=== PATIENT | female | born 1955 | race Caucasian/White ===

== ENCOUNTER → 2017-10-14 17:13 | Outpatient (CLI) | payer OTHER, SELFPAY ==
[2017-10-14 17:45] LABS: Hematocrit 42.2 % (37-47); Hemoglobin 14.2 g/dl (12.0-15.0); Mean Corp Hgb Conc 33.6 g/gl (32-36); Mean Corpuscular Hgb 29.7 pg (27.0-32.0); Mean Corpuscular Volume 88.3 fL (81-99); Mean Platelet Vol. 9.1 fl (6.2-12.0); Platelet Count 263 K/mm3 (150-450); RBC Distribution Width CV 13.4 % (11.6-14.6); RBC Distribution Width SD 43.2 fl (35.1-43.9); Red Blood Count 4.78 M/mm3 (4.2-5.4); Scan Indicated on CBC? Y/N NO; White Blood Count 7.7 K/mm3 (4.4-11.0)
[2017-10-14 18:04] LABS: ALB/GLOB Ratio 1.1 RATIO (0.9-2.4); AST(SGOT) 16 U/L (15-37); Alanine Aminotransfer ALT/SGPT 31 U/L (13-56); Albumin, Serum 4.1 g/dL (3.2-5.0); Alkaline Phosphatase 134 U/L (45-117); Anion Gap 5 (5-15); BUN 14 mg/dL (7-18); Calcium,Total 9.1 mg/dL (8.5-10.1); Chloride 103 mmol/L (98-107); Creatinine, Serum 0.52 mg/dL (0.55-1.02); EST Glomerular Filtration Rate 126 mL/min (>60); Est Glom Filt Rate - Afr Amer 153 mL/min (>60); Globulin 3.9 g/dL (2.2-4.2); Glucose 106 mg/dL (74-106); Sodium Level 137 mmol/L (136-145)
[2017-10-21 11:59] LABS: HPV Reflexed? NOT INDICATED
== END ==
PROVIDERS: Visit Provider Obstetrics & Gynecology
DX: N95.1 Menopausal and female climacteric states (principal); Z12.4 Encounter for screening for malignant neoplasm of cervix
CPT/HCPCS: 36415; 80053; 85027; 88175; G0145

== ENCOUNTER 2023-05-14 11:19 | Emergency (ER) | payer MEDICARE, SELFPAY ==
[2023-05-14 11:20] VITALS: BP 177/102; PULSE 77; RESP 16; TEMP 36.2; O2SAT 98; BMI 25.4
--- NOTE | 2023-05-14 11:44 | CT_ITS ---
INDICATION: trauma EXAMINATION: CT BRAIN - CT Head or Brain W/O Contrast Injection TECHNIQUE: Multiple axial images were obtained of the head without intravenous contrast. A radiation dose optimization technique was used for this scan. IV Contrast dosage and agent: None. RADIATION DOSAGE (If Supplied By Facility): CTDIvol = ( 44.99 ) mGy, DLP = ( 779.24 ) mGycm COMPARISON: No relevant prior comparison study available FINDINGS: BRAIN PARENCHYMA: No intra- or extra-axial hemorrhage. There are patchy foci of low attenuation within the white matter of the cerebral hemispheres, a nonspecific finding most commonly reflecting small vessel ischemia. No evidence of acute infarct. No intracranial mass or mass effect. There is preservation of the marie/white matter interface. Posterior fossa structures are unremarkable. CSF SPACES: Appropriate for age. No hydrocephalus. Basal cisterns are patent. CALVARIUM, SKULL BASE, PARANASAL SINUSES AND MASTOID AIR CELLS: Clear. No discrete lytic or blastic abnormalities. There is a right periorbital hematoma associated with a subcutaneous hematoma overlying the right frontal calvarium. There is partial opacification of the ethmoid and visualized maxillary sinuses. ORBITS: Both globes, extraocular muscles, optic nerves and retrobulbar fat appear unremarkable. ASPECTS Score for Acute Strokes: 10 CT/Brain/Head without Contrast IMPRESSION: No acute intracranial process. Right periorbital hematoma associated with a subcutaneous hematoma overlying the right frontal calvarium. Small vessel ischemia. Electronically Signed: Thu Hooks MD at 12:40 EDT ,
--- NOTE | 2023-05-14 11:44 | CT_ITS ---
INDICATION: trauma EXAMINATION: CT CERVICAL SPINE - CT Spine Cervical W/O Contrast Injection TECHNIQUE: Helically acquired images were obtained of the cervical spine. 2D reformatted images were reviewed. A radiation dose optimization technique was used for this scan. IV Contrast dosage and agent: None. RADIATION DOSAGE (If Supplied By Facility): CTDIvol = ( 19.24 ) mGy, DLP = ( 390.43 ) mGycm COMPARISON: No relevant prior comparison study available FINDINGS: VERTEBRAE: No fracture or traumatic subluxation. There is multilevel endplate spondylosis and facet hypertrophy. No discrete lytic or blastic abnormality. Normal alignment. Normal craniocervical junction and cervicothoracic junction. DISCS and SPINAL CANAL: There is multilevel degenerative disc disease. No critical stenosis. NECK SOFT TISSUES: No prevertebral soft tissue swelling. There is no cervical adenopathy. There are vascular calcifications. There is a left carotid stent in place. LUNG APICES: Clear. CT/Spine Cervical without Contras IMPRESSION: Multilevel degenerative changes. Atherosclerosis. Electronically Signed: Thu Hooks MD at 12:44 EDT ,
--- NOTE | 2023-05-14 11:44 | CT_ITS ---
INDICATION: trauma EXAMINATION: CT FACIAL BONES - CT Maxillofacial W/O Contrast Injection TECHNIQUE: Helically acquired images were obtained of the facial bones. A radiation dose optimization technique was used for this scan. IV Contrast dosage and agent: None. RADIATION DOSAGE (If Supplied By Facility): CTDIvol = ( 29.38 ) mGy, DLP = ( 510.73 ) mGycm COMPARISON: No relevant prior comparison study available FINDINGS: SOFT TISSUES: There is a right periorbital hematoma associated with a subcutaneous hematoma overlying the right frontal calvarium. There is a left carotid stent in place. VISUALIZED PARANASAL SINUSES: There is partial opacification of the ethmoid and maxillary sinuses. VISUALIZED MASTOID AIR CELLS: Clear. FACIAL BONES, MANDIBLE AND TMJs: No displaced facial bone fracture. No lytic or blastic abnormality. VISUALIZED DENTITION: No periodontal osseous erosion. ORBITAL CONTENTS: Both globes, extraocular muscles and retrobulbar fat appear unremarkable. CT/Sinus/Facial Bone IMPRESSION: No acute osseous injury. Partial opacification of the ethmoid and maxillary sinuses consistent with a history of sinusitis. Right periorbital hematoma associated with a subcutaneous hematoma overlying the right frontal calvarium. Electronically Signed: Thu Hooks MD at 12:48 EDT ,
--- NOTE | 2023-05-14 11:51 | EDS_ITS ---
HPI HPI - Fall History of Present Illness Chief Complaint: Fall Informant: patient and spouse/S.O. Narrative Narrative: Presents here his private vehicle with significant other mechanical fall parking lot at [employer] getting out of the car. Head injury. No loss of conscious. Mild headache. No nausea or vomiting. Patient takes aspirin and Plavix for history of vascular insufficiency with carotid endarterectomy in the past. Tetanus more than 5 years ago. She scraped her knees. She is able to ambulate. No upper extremity pain. No neck or back pain. No chest pain. [facility] Medical History (Updated 05/14/23 @ 16:[address] Ernie Perez, DO) Acid reflux Coronary artery disease Diabetes Hypertension Plantar fasciitis Home Medications ibuprofen 600 mg tablet 600 mg PO Q8H PRN PRN Pain ##20 12/20/15 [Rx Last Taken Unknown] venlafaxine 150 mg capsule,extended release 24 hr 150 mg PO DAILY 12/20/15 [History Last Taken Unknown] Allergy/AdvReac Type Severity Reaction Status Date / Time Penicillins [PCN] Allergy Unknown Verified 05/14/23 11:23 Social History Smoking Status: Never smoker ROS ROS ED Constitutional Constitutional ED: Denies chills, fever(s) or sweats Eyes Eyes: Denies change in vision ENT ENT ED: Denies dysphagia or sore throat Cardiovascular Cardiovascular: Denies chest pain, leg edema, palpitations or racing heartbeat Respiratory/Chest Respiratory/Chest: Denies cough, dyspnea or dyspnea on exertion Gastrointestinal Gastrointestinal: Denies abdominal pain, diarrhea, nausea or vomiting Genitourinary Genitourinary ED: Denies dysuria, hematuria or urinary frequency Musculoskeletal Musculoskeletal: Denies back pain, extremity pain or neck pain Integumentary Reports wounds; Denies rash Neurologic Neurologic: Reports headache(s); Denies paresthesias or weakness EXAM Physical Exam Const Vital Signs: 05/14/23 11:20 05/14/23 11:53 05/14/23 13:24 Temperature 97.1 F L Temperature Source Temporal Pulse Rate 77 73 Respiratory Rate 16 Respiratory Effort Normal Respiratory Depth Normal Respiratory Pattern Normal Blood Pressure 177/102 H 160/92 H Blood Pressure Mean 127 114 Pulse Ox 98 100 Oxygen Delivery Method Room Air Room Air Positive well nourished and well developed Constitutional Narrative: GCS 15. General Appearance ED: well developed and NAD HEENT Reports moist mucous membranes HEENT Narrative: Large cephalic frontal hematoma right side, 2 small abrasions no active bleeding. Swelling about the eye. No hemotympanums. normocephalic Eyes PERRL, EOMs intact bilaterally and conjunctivae normal Eyes Narrative: No proptosis or entrapment General Eye ED: Yes normal appearance of both eyes Neck full ROM, no lymphadenopathy and supple Neck Narrative: No midline tenderness, no step-offs. General: Negative for tenderness Chest Wall inspection of chest normal and palpation of chest normal Chest: Negative for tenderness Resp normal respiratory effort and normal air movement Resp Narrative: Symmetric breath sounds Effort and Inspection: symmetric chest movement; Negative for respiratory distress Cardio regular rate, regular rhythm and no murmurs Peripheral Pulses: pulses 2+ throughout GI normal to inspection, nondistended, normoactive bowel sounds and non-tender Palpation: Negative for guarding or rebound tenderness present Back/Spine no CVA tenderness and no thoracic nor lumbar tenderness Back/Spine Narrative: No midline thoracic lumbar to tenderness. Extremity normal to inspection Extremity Narrative: Negative logroll lower extremities. Superficial knee abrasions right greater than left. No patellar tenderness. Negative varus and valgus. General Extremety ED: Negative for edema or tenderness General Extremity: Negative for edema Neuro oriented x3, CN's II-XII intact bilaterally and no sensory deficits noted Sensorium / Orientation: awake and alert Skin Skin Narrative: See above MDM MDM MDM Narrative Medical decision making narrative: Interventions / MDM: Differential diagnosis: Facial contusion, abrasions Diagnosis considered but do not suspect: Intracranial hemorrhage however CT negative. Fractures however imaging negative. My EKG interpretation: N/A Imaging independently reviewed and interpreted by myself: CT brain/face/cervical spine: No intracranial hemorrhage, no fractures. Also read by radiology. External documents reviewed: N/A Test considered but not ordered:N/A ED course: Mechanical fall large hematoma right frontal. Ice was placed. Tetanus updated. Trauma scans head face and neck ordered. CT scans were negative. Reevaluation hematoma improving however gravity starting to note swelling upper eyelids. Discussed this is natural process with the patient. She will continue to ice. She use Tylenol as needed. Outpatient follow-up with her PCP. All questions were answered. Re-evaluation: stable Disposition discussed with patient/family/significant other: Patient and family Case discussed with consulting clinician: N/A This note was generated with Dragon dictation software. It may contain incorrect words, spelling, and punctuation that were not noted in checking the note before signing. Radiography Diagnostic Testing: Clinical Impression(s) from Imaging Studies Brain CT 05/14/23 11:44 IMPRESSION: No acute intracranial process. Right periorbital hematoma associated with a subcutaneous hematoma overlying the right frontal calvarium. Small vessel ischemia. Electronically Signed: Thu Hooks MD at 12:40 EDT , Cervical Spine CT 05/14/23 11:44 IMPRESSION: Multilevel degenerative changes. Atherosclerosis. Electronically Signed: Thu Hooks MD at 12:44 EDT , Facial/Sinus 05/14/23 11:44 IMPRESSION: No acute osseous injury. Partial opacification of the ethmoid and maxillary sinuses consistent with a history of sinusitis. Right periorbital hematoma associated with a subcutaneous hematoma overlying the right frontal calvarium. Electronically Signed: Thu Hooks MD at 12:48 EDT , Discharge Plan Triage Chief Complaint: Fall ED Provider: Ernie Perez Dx/Rx/DC Orders Clinical Impression: Closed head injury, Contusion of face, Tetanus toxoid vaccination administered at current visit Instructions: ED Soft Tissue Contusion, ED Head Injury (Adult) Prescriptions: No Action venlafaxine 150 MG capsule 150 mg PO DAILY ibuprofen 600 MG tablet 600 mg PO Q8H PRN PRN (Reason: Pain) Qty: 20 0RF Primary Care Provider: Jim Coronel Referrals: Jim Coronel DO [Primary Care Provider] - 1 Week NOT,DEFINED [Non-Staff] - Activity Restrictions/Additional Instructions: CT head face and cervical spine all negative for fracture or bleeds. You have a large hematoma which will resolve. Increasing bruising's may noted around the right eye due to cheek region due to gravity. May use Tylenol as needed. Continue to ice. Follow-up with your doctor. Disposition Disposition: Home, Self Care Discharge Date/Time: 05/14/23 13:27
[2023-05-14] MEDS: Diphth,Pertuss(Acell),Tet Vac 0.5 ML Vial IM (12:24)
[2023-05-14 13:24] VITALS: BP 160/92; PULSE 73; O2SAT 100
== END 2023-05-14 13:27 | disposition home or self-care (01) ==
PROVIDERS: Emergency Provider Emergency Medicine; PCP Preventive Medicine Occupational Medicine; Visit Provider Emergency Medicine
DX: S06.9X0A Unspecified intracranial injury without loss of consciousness, initial encounter (principal); E11.9 Type 2 diabetes mellitus without complications; S00.83XA Contusion of other part of head, initial encounter; I25.10 Atherosclerotic heart disease of native coronary artery without angina pectoris; I10 Essential (primary) hypertension; W19.XXXA Unspecified fall, initial encounter; Y92.481 Parking lot as the place of occurrence of the external cause; Z79.02 Long term (current) use of antithrombotics/antiplatelets; Z79.82 Long term (current) use of aspirin; Z23 Encounter for immunization
CPT/HCPCS: 70450; 70486; 72125; 90471; 90715; 99282

== ENCOUNTER 2023-05-16 13:53 | Emergency (ER) | payer MEDICARE, SELFPAY ==
[2023-05-16 13:54] VITALS: BP 150/57; PULSE 95; RESP 16; TEMP 36.6; O2SAT 100; BMI 26.0
--- NOTE | 2023-05-16 14:07 | EDS_ITS ---
<Statement entered by Donavon Moreno MD - 05/16/23 14:43> I have personally performed a face to face assessment of the patient and have reviewed the EDDIE Note. HPI History of Present Illness Chief Complaint: Head Injury Narrative Narrative: Patient presenting today for evaluation due to ecchymosis to her face due to a fall that occurred on . She was seen here in the ED after the fall, it was a mechanical fall coming out of the grocery store in a parking lot, she did hit her face on the ground. CTs of the head, face, neck were obtained and did not show any intracranial bleed or fractures. She is on Plavix, she reports that she has been icing her face. She reports that she has noticed some purulent discharge from her right eye which is swollen shut and became concerned for an infection. She denies any headache, dizziness, visual changes, nausea, and vomiting. [facility] Medical History Acid reflux Coronary artery disease Diabetes Hypertension Plantar fasciitis Home Medications ibuprofen 600 mg tablet 600 mg PO Q8H PRN PRN Pain ##20 12/20/15 [Rx Last Taken Unknown] venlafaxine 150 mg capsule,extended release 24 hr 150 mg PO DAILY 12/20/15 [History Last Taken Unknown] Allergy/AdvReac Type Severity Reaction Status Date / Time Penicillins [PCN] Allergy Unknown Verified 05/14/23 11:23 Social History Smoking Status: Never smoker ROS ROS ED Constitutional Constitutional ED: Denies chills or fever(s) Eyes Eyes: Denies change in vision Cardiovascular Cardiovascular: Denies chest pain or palpitations Respiratory/Chest Respiratory/Chest: Denies cough or dyspnea Gastrointestinal Gastrointestinal: Denies abdominal pain, nausea or vomiting Musculoskeletal Musculoskeletal: Denies arthralgias or myalgias Integumentary Reports other Details: bruising to face Neurologic Neurologic: Denies dizziness, headache(s) or weakness EXAM Physical Exam Const Vital Signs: 05/16/23 13:54 05/16/23 13:54 Temperature 97.8 F Temperature Source Temporal Pulse Rate 95 Respiratory Rate 16 Respiratory Effort Normal Respiratory Depth Normal Respiratory Pattern Normal Blood Pressure 150/57 H Blood Pressure Mean 88 Pulse Ox 100 Oxygen Delivery Method Room Air Room Air Positive well nourished, well developed and no apparent distress General Appearance ED: well developed HEENT Reports normocephalic and head/scalp atraumatic HEENT Narrative: Left forehead hematoma, bruising and edema to the periorbital regions bilate rally, worse on the right, bruising extends down into the cheeks bilaterally. Mouth ED: Yes moist mucous membranes normal Eyes PERRL and EOMs intact bilaterally General Eye ED: Yes other Other Details: No corneal injection to the right eye, there is a little bit of cream-colored discharge between the folds of her skin from her lower eyelid and right upper cheek from the swelling. Neck full ROM and supple Chest Wall inspection of chest normal Resp normal respiratory effort and clear to auscultation bilaterally Cardio regular rate and regular rhythm GI soft to palpation, non-tender, non-distended and no masses Back/Spine normal ROM and normal to inspection Extremity normal to inspection and full ROM Neuro oriented x3, CN's II-XII intact bilaterally, moves all extremities, no focal motor deficits and no sensory deficits noted Sensorium / Orientation: awake and alert Psych mental status grossly normal and thought process normal MDM MDM MDM Narrative Medical decision making narrative: Patient presenting today for evaluation due to worsening bruising to her face following a mechanical fall that occurred on . She was seen here in the ED and had CTs performed of her head, neck, and face. All were negative for acute fracture or intracranial bleed. She does have increased swelling to her right periorbital region as well as a little bit of green-colored discharge that she noticed from that area. There is no corneal injection to her right eye, EOMs intact, there is a little bit of green color discharge in between the folds of skin between the lower eyelid and upper cheek. No signs of periorbital cellulitis. She will be given bacitracin ointment for this. She is to follow-up with her PCP and will be discharged home in stable condition. She is to continue icing her face several times a day for the next few days. She is comfortable with plan. Discharge Plan Triage Chief Complaint: Head Injury ED Midlevel Provider: Deepa Hugo ED Provider: Donavon Moreno Dx/Rx/DC Orders Clinical Impression: Facial bruising, Fall Instructions: ED Facial Contusion, ED Head Injury (Adult) Prescriptions: No Action venlafaxine 150 MG capsule 150 mg PO DAILY ibuprofen 600 MG tablet 600 mg PO Q8H PRN PRN (Reason: Pain) Qty: 20 0RF Primary Care Provider: Jim Coronel Referrals: Jim Coronel DO [Primary Care Provider] - 5-7 Days Activity Restrictions/Additional Instructions: Please follow-up with your PCP and return for any worsening symptoms. Continue to ice her face several times a day for the next few days for 15 to 20 minutes at a time. Apply bacitracin ointment to the eyelid 4 times a day for the next 5 days. Disposition Disposition: Home, Self Care Discharge Date/Time: 05/16/23 14:38
== END 2023-05-16 14:38 | disposition home or self-care (01) ==
LOC: ED 14:19
PROVIDERS: Emergency Provider Emergency Medicine; PCP Preventive Medicine Occupational Medicine; Visit Provider Emergency Medicine
DX: S00.83XA Contusion of other part of head, initial encounter (principal); E11.9 Type 2 diabetes mellitus without complications; I10 Essential (primary) hypertension; Y92.481 Parking lot as the place of occurrence of the external cause; I25.10 Atherosclerotic heart disease of native coronary artery without angina pectoris; W19.XXXA Unspecified fall, initial encounter; Z79.02 Long term (current) use of antithrombotics/antiplatelets
CPT/HCPCS: 99282